=== PATIENT | male | born 1985 | race Caucasian/White ===

== ENCOUNTER 2023-05-04 17:28 | Emergency (ER) | payer BC, SELFPAY ==
[2023-05-04 17:33] VITALS: BP 124/82; PULSE 58; RESP 20; TEMP 36.8; O2SAT 99; BMI 26.6
--- NOTE | 2023-05-04 17:41 | ED.EYEPROB1 ---
Documented by User: Viki Loyd 05/04/23 18:49 HPI - Eye Problem General Chief complaint: Eye Problems Stated complaint: EYE PAIN Time Seen by Provider: 05/04/23 17:38 Source: patient and family Mode of arrival: walk-in Limitations: no limitations History of Present Illness HPI Narrative: 37 year old male presents to the ED for left eye irritation, pain s/p injury today. He states he was cleaning up his yard when a stick poked his eye. He states he flushed the eye with saline. Denies vision loss. Reports photophobia and blurry vision. His last tetanus update was last year. Denies fever, chills, PENA, dizziness, bleeding. MD chief complaint: Reports eye pain, eye redness and eye injury Related Data Previous Rx's Medication Instructions Recorded hydrocodone 5 mg-acetaminophen 325 1 tab PO Q6H PRN pain 5 days #20 05/04/23 mg tablet tabs Allergies Allergy/AdvReac Type Severity Reaction Status Date / Time No Known Drug Allergies Allergy Verified 05/04/23 17:37 Review of Systems ROS Constitutional Denies: fever, chills or fatigue Eyes Reports: blurry vision, light sensitivity and eye discomfort; Denies: blind spots, eye discharge or dry eyes Cardiovascular Denies: chest pain Respiratory Denies: shortness of breath Integumentary/Breast Denies: rash, skin pain, skin tenderness or skin swelling Neurological Denies: headache or dizziness PFSH PFSH Social History Smoking status: Former smoker Exam Constitutional Vital Signs - 24 hr 05/04/23 17:33 05/04/23 18:43 Temperature 98.2 F 99.0 F Pulse Rate [Monitor] 58 L 88 Respiratory Rate 20 16 Blood Pressure [Right Arm] 124/82 H 116/78 Pulse Oximetry 99 99 Oxygen Delivery Method Room Air Common normals: oriented x3 and alert General appearance: cooperative; not ill appearing [facility] Common normals: normocephalic Eye Common normals: PERRL, EOMs intact bilaterally and no scleral icterus Visual acuity: no complete vision loss Eyelid: eyelids normal Cornea: fluorescein used Pupil: PERRL Direct Ophthalmoscopy: no photophobia Other: Left eye was anesthetized with tetracaine, stained with a fluorescein strip, and examined with the wood's lamp. There was a large corneal abrasion noted. No FB was noted. No hyphema noted. Pt reported no change in his vision after the tetracaine drops were applied. Neck & C-Spine Common normals: supple Chest Chest: symmetrical chest wall rise Respiratory Common normals: normal respiratory effort Effort & inspection: non tachypneic, not labored and no stridor Cardio Common normals: regular rate Neuro Common normals: oriented x3 Sensorium/orientation: awake and alert Speech: speech normal Gait (neuro): normal gait Course Vital Signs Vital signs: Vital Signs Temperature 98.2 F 05/04/23 17:33 Pulse Rate 58 L 05/04/23 17:33 Respiratory Rate 20 05/04/23 17:33 Blood Pressure 124/82 H 05/04/23 17:33 Pulse Oximetry 99 05/04/23 17:33 Oxygen Delivery Method Room Air 05/04/23 17:33 Temperature 99.0 F 05/04/23 18:43 Pulse Rate 88 05/04/23 18:43 Respiratory Rate 16 05/04/23 18:43 Blood Pressure 116/78 05/04/23 18:43 Pulse Oximetry 99 05/04/23 18:43 Oxygen Delivery Method Room Air 05/04/23 17:33 MDM - Eye Problem MDM Narrative Medical decision making narrative: A large corneal abrasion was noted on examination. He reported his tetanus status was up to date. He was started on erythromycin op ointment here in the ED. He was also given a [place] for his discomfort. He was given cyclopentolate at the recommendation of the ED physician for his discomfort. Instructions for the erythromycin and cyclopentolate were provided for home. [place] was reviewed. A prescription was provided for [place]. He reported he has an bike assembler for follow up; follow up as directed. Return precautions were discussed. He was discharged to his significant other. Differential Diagnosis Differential diagnosis: Likely corneal abrasion and conjunctivitis Medical Records Attestation: I reviewed the patient's medical records. Discharge Plan Discharge Chief Complaint: Eye Problems Clinical Impression: Abrasion, corneal Patient Disposition: Home, Self-Care Time of Disposition Decision: 18:12 Condition: Good Mode of Transportation: Private Vehicle Prescriptions / Home Meds: New hydrocodone-acetaminophen 5-325 mg tablet 1 tab PO Q6H PRN (Reason: pain) 5 Days Qty: 20 0RF Instructions: Corneal Abrasion (ED) Additional Instructions: Follow up with your bike assembler for a recheck, further evaluation and treatment. Return to the ER if your condition worsens. Erythromycin op ointment: 1 cm ribbon in left eye every 4-6 hours while awake for 7 days. Cyclopentolate op drops: two drops daily for 2-3 days, as needed for pain Stand Alone Forms: Portal Instructions Referrals: Physician,Non-Staff, [Primary Care Provider] - 05/07/23 (Ophthalmology) Discharge Date/Time: 05/04/23 18:44 Documented by User: Ramon Major MD 05/04/23 19:27 HPI - Eye Problem General Chief complaint: Eye Problems Stated complaint: EYE PAIN Time Seen by Provider: 05/04/23 17:38 Related Data Previous Rx's Medication Instructions Recorded hydrocodone 5 mg-acetaminophen 325 1 tab PO Q6H PRN pain 5 days #20 05/04/23 mg tablet tabs Allergies Allergy/AdvReac Type Severity Reaction Status Date / Time No Known Drug Allergies Allergy Verified 05/04/23 17:37 PFSH PFSH Social History Smoking status: Former smoker Exam Constitutional Vital Signs - 24 hr 05/04/23 17:33 05/04/23 18:43 Temperature 98.2 F 99.0 F Pulse Rate [Monitor] 58 L 88 Respiratory Rate 20 16 Blood Pressure [Right Arm] 124/82 H 116/78 Pulse Oximetry 99 99 Oxygen Delivery Method Room Air Eye Other: Left eye was anesthetized with 4 drops of tetracaine, stained with a fluorescein strip, and examined with the wood's lamp. There was a large corneal abrasion noted. No FB was noted. No hyphema noted. Pt reported no change in his vision after the tetracaine drops were applied. Upper and lower eyelid was inverted, no foreign bodies noted. No scleral or conjunctival laceration. No hyphema. Patient's pain was relieved when tetracaine was placed. See visual acuity. Course Vital Signs Vital signs: Vital Signs Temperature 98.2 F 05/04/23 17:33 Pulse Rate 58 L 05/04/23 17:33 Respiratory Rate 20 05/04/23 17:33 Blood Pressure 124/82 H 05/04/23 17:33 Pulse Oximetry 99 05/04/23 17:33 Oxygen Delivery Method Room Air 05/04/23 17:33 Temperature 99.0 F 05/04/23 18:43 Pulse Rate 88 05/04/23 18:43 Respiratory Rate 16 05/04/23 18:43 Blood Pressure 116/78 05/04/23 18:43 Pulse Oximetry 99 05/04/23 18:43 Oxygen Delivery Method Room Air 05/04/23 17:33 MDM - Eye Problem MDM Narrative Medical decision making narrative: A large corneal abrasion was noted on examination. He reported his tetanus status was up to date. He was started on erythromycin op ointment here in the ED. He was also given a [place] for his discomfort. He was given cyclopentolate at the recommendation of the ED physician for his discomfort. Instructions for the erythromycin and cyclopentolate were provided for home. [place] was reviewed. A prescription was provided for [place]. He reported he has an bike assembler for follow up; follow up as directed. Return precautions were discussed. He was discharged to his significant other. Patient was educated on not using Tylenol or narcotic at the same time,But that he can also take anti-inflammatories and [id number] Naphcon-A to help with pain as well. Patient has a eye physician to follow-up with on Sunday. Patient and very thankful for thorough instructions by nurse practitioner, myself, nursing staff Discharge Plan Discharge Chief Complaint: Eye Problems Clinical Impression: Abrasion, corneal Patient Disposition: Home, Self-Care Time of Disposition Decision: 18:12 Condition: Good Mode of Transportation: Private Vehicle Prescriptions / Home Meds: New hydrocodone-acetaminophen 5-325 mg tablet 1 tab PO Q6H PRN (Reason: pain) 5 Days Qty: 20 0RF Instructions: Corneal Abrasion (ED) Additional Instructions: Follow up with your bike assembler for a recheck, further evaluation and treatment. Return to the ER if your condition worsens. Erythromycin op ointment: 1 cm ribbon in left eye every 4-6 hours while awake for 7 days. Cyclopentolate op drops: two drops daily for 2-3 days, as needed for pain Stand Alone Forms: Portal Instructions Referrals: Physician,Non-Staff, [Primary Care Provider] - 05/07/23 (Ophthalmology) Discharge Date/Time: 05/04/23 18:44
[2023-05-04] MEDS: FLUORESCEIN SODIUM 1 MG STRIP OP (17:57)
[2023-05-04] MEDS: HYDROCODONE/ACETAMINOPHEN 5-325 MG TABLET 1 TAB PO (18:26)
[2023-05-04] MEDS: CYCLOPENTOLATE HCL 1% OP SOL 40 DROP/2 ML BOTTLE OP (18:27)
[2023-05-04] MEDS: ERYTHROMYCIN OP OINT 0.5% 1 GM TUBE OP (18:42)
[2023-05-04 18:43] VITALS: BP 116/78; PULSE 88; RESP 16; TEMP 37.2; O2SAT 99
== END 2023-05-04 18:44 | disposition home or self-care (01) ==
PROVIDERS: Emergency Provider Emergency Medicine
DX: S05.02XA Injury of conjunctiva and corneal abrasion without foreign body, left eye, initial encounter (principal); W22.8XXA Striking against or struck by other objects, initial encounter; Z87.891 Personal history of nicotine dependence
CPT/HCPCS: 99283